=== PATIENT | female | born 1995 | race Caucasian/White ===

== ENCOUNTER 2018-03-07 06:00 | Inpatient (IN) ==
[2018-03-07] MEDS ORDERED: Metoclopramide 10 MG/2 ML VIAL IVP PRN (06:43)
[2018-03-07] MEDS ORDERED: Naloxone 0.4 MG/ML INJ IVP PRN (06:43)
[2018-03-07] MEDS ORDERED: Famotidine 20 MG/2 ML VIAL IVP PRN (06:43)
[2018-03-07] MEDS ORDERED: *HR* Nalbuphine 10 MG/ML AMPUL IVP PRN (06:43)
[2018-03-07] MEDS ORDERED: Lidocaine -MPF 1% 2 ML VIAL ONE (07:18)
[2018-03-07 07:22] LABS: Basophils % 0.2 %; Eosinophils # 0.1 K/mcL (0.0-0.6); Eosinophils % 1.2 %; Hematocrit 35.5 % (35.3-44.9); Hemoglobin 11.8 g/dL (11.5-15.4); Immature Granulocytes % 0.3 % (0-4); Immature Platelets 3.8 % (1.1-6.1); Lymphocytes # 2.9 K/mcL (0.6-4.6); Lymphocytes % 23.6 %; Mean Corpuscular HGB Conc 33.2 g/dL (31.6-35.5); Mean Corpuscular Hemoglobin 29.4 pg (28.0-33.3); Mean Corpuscular Volume 88.3 fL (83.0-100.0); Mean Platelet Volume 10.1 fL (9.4-12.4); Monocytes # 0.9 K/mcL (0.0-1.3); Monocytes % 7.7 %; Neutrophils # 8.1 K/mcL (1.6-8.9); Platelet Count 204 K/mcL (140-400); Red Blood Count 4.02 M/mcL (3.82-4.97); Red Cell Distribution Width 13.4 % (11.5-14.5)
[2018-03-07 07:29] LABS: Amphetamine Screen,Urine Negative ng/mL (Cutoff=1000); Barbiturate Screen,Urine Negative ng/mL (Cutoff=200)
[2018-03-07 07:30] LABS: Benzodiazepines Screen,Urine Negative ng/mL (Cutoff=300); Cannabinoid Screen,Urine Negative ng/mL (Cutoff = 50); Cocaine Screen,Urine Negative ng/mL (Cutoff= 300); Opiate Screen,Urine Negative ng/mL (Cutoff=300); Phencyclidine Screen,Urine Negative ng/mL (Cutoff=25)
--- NOTE | 2018-03-07 07:40 | Anesthesia Evaluation PreOp ---
Date of Encounter: 03/07/18 Time of Encounter: 07:31 - Past History Planned Operation: vaginal del, G1 induction Cardiac History: Denies any Significant Hx Pulmonary History: Denies Any Significant HX REGIONAL COORDINATOR History: Denies Any Significant HX Other Medical History: Denies Any Significant HX Anesthesia History: No Prior Anesthetic Complications, Past Anesthesia (no family hx.) Alcohol Use: none Drug use: marijuana Medications and Allergies Acetaminophen [Tylenol] 1,300 mg PO 03/07/18 [History] Allergy/AdvReac Type Severity Reaction Status Date / Time Penicillins Allergy See Verified 03/07/18 06:46 Comments Anesthesia Results - Labs 03/07/18 06:50 Anesthesia Exam - HEENT Pupil (Motor): Pupils equal Mallampati: II Teeth: Normal Oral Opening: Greater than 3 - REGIONAL COORDINATOR LOC: Oriented REGIONAL COORDINATOR Motor: Normal RUE, Normal LUE, Normal RLE, Normal LLE, Normal Face REGIONAL COORDINATOR Sensory: Normal: RUE, LUE, RLE, LLE, Face - Cardiac Rhythm: Regular Murmur: None - Pulmonary Breath Sounds: bilateral Clear Respiratory Effort: Symmetrical Anesthesia Assess/Plan ASA Score: 2 Level of consciousness: Cooperative, Oriented Anesthetic Plan: General, Spinal, Epidural Monitoring Plan: Standard Monitors Recovery Plan: PACU
[2018-03-07] MEDS ORDERED: Epidural Premix (fent/bupiv) 110 ML EP SCH (07:45)
[2018-03-07] MEDS: Ringers Solution, Lactated 1,000 ML IVC SCH ×2 (07:52→18:32)
[2018-03-07] MEDS ORDERED: miSOPROStol 25 MCG TABLET PO SCH (08:00)
[2018-03-07] MEDS ORDERED: Lidocaine -MPF 2% 5 ML VIAL ONE (08:01)
--- NOTE | 2018-03-07 10:40 | OB/GYN History & Physical ---
Date of Encounter: 03/07/18 Time of Encounter: 10:32 Assessment and Plan (1) 40 weeks gestation of Current visit: Yes Status: Acute (2) Intrauterine Current visit: Yes Status: Acute Admit to L&D for IOL Cytotec 50mcg po x 1 Labs - CBC and clot to hold CEFM Pain mangement plan is epidural Anticipate Dr. Medina is OB bus info consultant and is available as needed (3) Intact amniotic membranes Current visit: Yes Status: Acute Qualifiers: Trimester: third trimester Qualified Code(s): Z34.93 - Encounter for supervision of normal , unspecified, third trimester (4) GBS (group B Streptococcus carrier), +RV culture, currently Current visit: Yes Status: Acute PCN allergic - IV Vancomycin q 12h until delivery (5) Type A blood, Rh negative Current visit: Yes Status: Acute Cord blood to be collected at delivery (6) NST (non-stress test) reactive Current visit: Yes Status: Acute Category I tracing History of Present Illness Chief complaint: Scheduled IOL HPI: Ms. Sigala is a 22 year old female at 40 weeks 2 days gestation dated by initial exam. She presents for scheduled IOL secondary to suspected circumvallate placenta. She endorses good fm and denies lof, vb, ctx. Her has been complicated by a circumvallate placenta. She was seen by the midwives throughout her in consultation with OB. records are available electronically and have been reviewed. Labs: A- GBS+ Hep B- HIV- T. Palladium- GC/CL- Rubella immune Varicella immune Past Med Surg Social Fam HX - Past Medical History Medical history: no medical history Psychiatric history: no psych history - Past Surgical History Surgical History: no surgical history - Social History Smoking Status: Never smoker Smokeless Tobacco Status: No Alcohol use: none Drug use: marijuana - Family History Father Family Member Ethnicity: Non- Living Status: Still Living Hx Family Cardiac Disorders: No Hx Family Respiratory Disorders: No Hx Family Cancer: No Hx Family GI Disorders: No Hx Family Genitourinary Disorders: No Hx Family Endocrine Disorder: No Hx Family Musculoskeletal Disorders: No Hx Family Neuromuscular Disorders: No Hx Family Neurologic Disorders: No Hx Family HEENT Disorders: No Hx Family Autoimmune Disorders: No Hx Family Reproductive Disorders: No Hx Family Psychosocial Disorders: No Hx Family Medical Disorders: No Obstetrical History - Pregnancies : 1 Para: 0 Term: 0 : 0 Ab's: 0 Livin Medications and Allergies Acetaminophen [Tylenol] 1,300 mg PO 03/07/18 [History] Allergy/AdvReac Type Severity Reaction Status Date / Time Penicillins Allergy See Verified 03/07/18 06:46 Comments Review of System OB All systems PM: reviewed and no additional remarkable complaints except as stated Exam - Constitutional Constitutional: well developed, well nourished, no acute distress, obese - HEENT HEENT: PERRL, Normocephaly, Mucus Membranes Moist - Neck Neck exam: full ROM - Lungs Respiratory exam: CTAB - Breasts Breast: bilateral: normal - Abdomen Abdomen: Present: bowel sounds normal, gravid, non tender - Extremities Extremities exam: normal capillary refill, normal inspection, pedal edema, radial pulses palpable and symmetrical - Vulva Vulva: bilateral: normal - Vagina Vagina: Present: normal moisture - Cervix Dilation: 3 (per RN) Effacement: 80 Station: -1 - Uterus Uterus exam: Present: normal size, normal contour - Adnexa Adnexa: bilateral: normal - Anus/Rectum Anus/Rectum: Present: normal perianal skin Results Result Diagrams: 03/07/18 06:50 Abnormal lab results WBC 12.1 K/mcL (4.3-11.1) H 03/07/18 06:50 All other labs normal. - VTE Reasons for not Prescribing Prophylaxis: Treatment not Indicated - Low risk for VTE
[2018-03-07] MEDS ORDERED: Ondansetron 4 MG/2 ML VIAL IVP PRN ×2 (12:00→23:31)
[2018-03-07] MEDS ORDERED: Ondansetron 4 MG/2 ML VIAL ONE (12:01)
[2018-03-07] MEDS ORDERED: Aminoglycoside Consult 1 EACH MC ONE (12:14)
[2018-03-07] MEDS ORDERED: Oxytocin 20 units/ LR 1000 mL 20 UNIT/1,000 ML BAG IVC SCH ×2 (12:30→22:10)
--- NOTE | 2018-03-07 15:11 | OB Labor Progress Note ---
Date of Encounter: 03/07/18 Time of Encounter: 15:09 Labor Progress Note - Subjective Subjective: Patient comfortable with contractions. States she is feeling contractions about every 5 minutes. - Cervix Cervix: 3-4/90/-1 - Heart Tones Heart Tones: Baseline 120 Moderate variability Accelerations present 15 x 15 No decelerations FHR category I - [place]: Contractions every 2-3 minutes and palpate mild - Interventions Interventions: SVE - Plan Physician notified: No Plan: Continue induction management Consider AROM in 1 hour with IUPC Anticipate vaginal delivery
--- NOTE | 2018-03-07 17:15 | Anesthesia Procedures ---
Addendum entered and electronically signed by Jaydon Arreaga CRNA 03/07/18 23:21: Infant Delivery Date: 03/07/18 Infant Delivery Time: 19:14 Original Note: Date of Encounter: 03/07/18 Time of Encounter: 16:39 Procedures: Anesthesia - Epidural/Spinal Patient ID/Chart reviewed: Yes Patient examined: Yes OB Eval: Gestational age: term OB Eval: : 1 OB Eval: Contractions: Non-stressed pattern Consent Obtained: Yes Supplemental Oxygen: None/Room Air Site Prep: Aseptic Technique, Sterile prep and drape, 0.5% Chlorhexidine/Alcohol Patient position: upright Local Anesthetic: Lidocaine 1% Amount of Local Anesthetic used: 2 Touhy Needle Gauge: 18 Touhy Needle Depth (cm): 7 Catheter Depth at Skin (cm): 11 Test Dose (1.5% Lido + Epi): Volume given (mls): 3 Test Dose Result: Negative Loading Dose: Other: 10ml from solution Loading Dose Administered: Thru Catheter Infusion Med: 0.125% Bupivacaine w/ 2 mcg/ml Fentanyl Infusion Rate (mls/hr): [address]: Tegaderm, Tape Interspace Used: L3-L4 Loss of Resistance (BRITTANY): Yes (saline) Blood: No CSF: No Paresthesia: No Procedure: vss though out procedure, FHR stable per rn's
[2018-03-07] MEDS ORDERED: *HR* Ropivacaine/PF 0.2% 20 ML VIAL ONE (17:23)
--- NOTE | 2018-03-07 18:43 | OB Labor Progress Note ---
Date of Encounter: 03/07/18 Time of Encounter: 18:38 Labor Progress Note - Subjective Subjective: Patient comfortable with epidural. - Cervix Cervix: 7-8/100/0 - Heart Tones Heart Tones: Baseline 110 Moderate variability Accelerations present 15x15 Variable and late decelerations FHR Category II - [place] Sells: Contractions every 2 minutes and palpate strong - Interventions Interventions: SVE AROM-Moderate amount of clear fluid IUPC placed - Plan Physician notified: Yes Physician notified details: Notified of pitocin stopped Plan: Continue IOL management Stop pit s/t decelerations - restart when appropriate Peanut ball and deep left lateral in rotation Anticipate Dr. Medina aware of POC and agrees
--- NOTE | 2018-03-07 19:51 | OB/GYN Procedure Note ---
Delivery - Delivery Date: 03/07/18 Provider: Henrietta Spence Intrapartum events: none Delivery induction: misoprostol Delivery augmentation: rupture of membranes, pitocin Delivery monitor: external FHT, external uterine, internal uterine Anesthesia: epidural Quantitated Blood Loss: 450 - (s) Infant A Infant Delivery Date: 03/07/18 Delivery Time: 19:14 Presentation: vertex Position: OA Route of delivery: Gender: Male Viability: Viable Pounds: 7 Ounces: 10 Weight Gram: 3.465 kg at 1 minute: 8 at 5 mins: 8 Shoulder Dystocia: not encountered Specimens collected: cord blood Placenta: spontaneous Cord: 3 umbilical vessels - Repair Episiotomy: none Laceration Description: Perineal - 2nd Degree (repaired), Labial (right - repaired) - Complications Delivery complications: none Delivery comments: This is a 22 year old G 1 now P 1 who was admitted for induction of labor secondary to circumvallate placenta. She progressed with misoprostol induction and Pitocin augmentation with AROM to the second stage of labor. She pushed for about 30 minutes. She delivered a viable, male , "Chuck" OA over a first-degree laceration. A nuchal cord was not identified. A shoulder dystocia was not encountered. The was placed on the maternal abdomen and allowed to transition spontaneously. The cord was double clamped by fire control technician g after pulsations ceased and cut by FOB. scores were 8 at 1 minute and 8 at 5 minutes. The weighed 7 lbs. 10 oz. (3465 g). The placented delivered spontaneously, intact ([place]) with a 3-vessel cord. Inspection revealed a first-degree laceration with a right labial laceration. The uterus was firm with no active bleeding. EBL was 450 mL. Placenta and umbilical artery blood gases were not sent. There were no complications during the procedure. Mom and baby are skin to skin following delivery. - Disposition Mom disposition: stable in LDR [place] disposition: stable in LDR
[2018-03-07] MEDS ORDERED: Methylergonovine 0.2 MG/ML AMPUL IM ONE (20:04)
[2018-03-07] MEDS ORDERED: Benzocaine/Menthol 56 GM AEROSOL SPRAY TP PRN (22:10)
[2018-03-07] MEDS ORDERED: Ibuprofen 600 MG TABLET PO PRN (22:10)
[2018-03-07] MEDS ORDERED: Rho Immune Globulin 1,500 UNIT SYRINGE IM PRN (22:10)
[2018-03-07] MEDS: Acetaminophen 325 MG TABLET PO PRN (22:43)
[2018-03-08] MEDS: Acetaminophen 325 MG TABLET PO PRN ×3 (04:56→18:42)
[2018-03-08] MEDS: Prenatal Vit/FA 1 EACH TABLET PO SCH (07:39)
[2018-03-08 07:55] LABS: Basophils % 0.1 %; Eosinophils % 0.3 %; Hematocrit 30.9 % (35.3-44.9); Hemoglobin 10.3 g/dL (11.5-15.4); Immature Granulocytes % 0.4 % (0-4); Lymphocytes # 2.6 K/mcL (0.6-4.6); Mean Corpuscular HGB Conc 33.3 g/dL (31.6-35.5); Mean Corpuscular Hemoglobin 29.6 pg (28.0-33.3); Mean Corpuscular Volume 88.8 fL (83.0-100.0); Mean Platelet Volume 10.1 fL (9.4-12.4); Monocytes # 1.3 K/mcL (0.0-1.3); Monocytes % 9.1 %; Neutrophils # 10.2 K/mcL (1.6-8.9); Platelet Count 159 K/mcL (140-400); Red Blood Count 3.48 M/mcL (3.82-4.97); Red Cell Distribution Width 13.4 % (11.5-14.5); Segmented Neutrophils % 72.1 %
--- NOTE | 2018-03-08 11:29 | OB/GYN Progress Note ---
Date of Encounter: 03/08/18 Time of Encounter: 11:26 - Assessment and Plan (1) Status post vaginal delivery Current Visit: Yes Status: Acute Pt meeting PP day 1 milestones. Reports pain well controlled. Encouraged ambulation. Anticipate discharge home tomorrow. (2) () Current Visit: Yes Status: Acute Infant latching well. at BS to assist. Continue support. Will need pump. Subjective - Subjective Principal diagnosis: Pt resting in room, denies complaints. Interval history: 22y/o on PPD 1 following a at 40+2 weeks. Pt resting comfortably in her room. Denies complaints. FOB present in room. Patient reports: appetite normal, voiding normally, pain well controlled, ambulating normally : doing well, nursing well Objective - Latest Vital Signs Latest vital signs: Vital Signs Temp Pulse Resp BP Pulse Ox 03/08/18 07:28 97.4 F L 58 16 94/55 97 03/08/18 04:10 97.4 F L 79 16 118/78 99 03/08/18 00:05 97.8 F 73 14 103/66 99 03/07/18 23:15 98.3 F 65 14 99/66 99 03/07/18 22:15 98.2 F 62 16 109/67 98 Intake and Output 03/07/18 03/08/18 03/08/18 23:59 07:59 15:59 Intake Total 800 / 800 Output Total 500 / 500 200 / 200 Balance -500 / -500 600 / 600 Intake: Oral 800 / 800 Output: Urine 500 / 500 200 / 200 - Exam Lungs: bilateral: normal Chest: Normal S1, Normal S2 Extremities: Present: normal. Absent: tenderness, edema Abdomen: Present: normal appearance, soft Uterus: Present: firm Uterus Position: At Umbilicus - Labs Labs: Laboratory Results - last 24 hr 03/07/18 03/08/18 20:30 07:33 WBC 14.2 H RBC 3.48 L Hgb 10.3 L D Hct 30.9 L MCV 88.8 MCH 29.6 MCHC 33.3 RDW 13.4 Plt Count 159 MPV 10.1 Immature Gran % 0.4 Seg Neutrophils % 72.1 Lymphocytes % 18.0 Monocytes % 9.1 Eosinophils % 0.3 Basophils % 0.1 Neutrophils # 10.2 H Lymphocytes # 2.6 Monocytes # 1.3 Eosinophils # 0.0 Basophils # 0.0 Screen NEGATIVE Baby's Blood Type O RH POSITIVE Mother's Blood Type A RH NEGATIVE Rhogam Indicated YES Rhogam Req for Mother 1
[2018-03-08] MEDS ORDERED: Lanolin 7 G OINT...G. TP PRN (20:39)
[2018-03-09 08:13] VITALS: BP 103/67
--- NOTE | 2018-03-09 08:17 | Discharge Summary ---
Date of Encounter: 03/09/18 Time of Encounter: 08:14 - Discharge Diagnosis (1) Vaginal delivery Priority: Primary Status: Acute Comments: Continue routine care discharge home today follow up with CNM in 4-6 weeks (2) Breast feeding status of mother Priority: Secondary Status: Acute Comments: support prn breast pump RX - Discharge Medications Prescriptions: Breast Pump [BREAST PUMP] 1 each .ROUTE AD #1 each Home Medications: Breast Pump [BREAST PUMP] 1 each .ROUTE AD #1 each 03/09/18 [Rx] Lanolin [Lansinoh] 1 appl TP TID PRN oint...g. 03/09/18 [Rx] Vit/FA 1 each PO DAILY tablet 03/09/18 [Rx] Allergies/Adverse Reactions: Allergy/AdvReac Type Severity Reaction Status Date / Time Penicillins Allergy See Verified 03/07/18 06:46 Comments Data Procedures and tests throughout hospitalization: Laboratory Tests 03/07/18 03/07/18 03/07/18 06:50 06:50 20:30 WBC 12.1 H RBC 4.02 Hgb 11.8 Hct 35.5 MCV 88.3 MCH 29.4 MCHC 33.2 RDW 13.4 Plt Count 204 MPV 10.1 Immature Gran % 0.3 Seg Neutrophils % 67.0 Lymphocytes % 23.6 Monocytes % 7.7 Eosinophils % 1.2 Basophils % 0.2 Neutrophils # 8.1 Lymphocytes # 2.9 Monocytes # 0.9 Eosinophils # 0.1 Basophils # 0.0 Immature Plt Fraction 3.8 Urine Opiates Screen Negative Ur Barbiturates Screen Negative Ur Phencyclidine Scrn Negative Ur Amphetamines Screen Negative U Benzodiazepines Scrn Negative Urine Cocaine Screen Negative U Marijuana (THC) Screen Negative Ur Drug Screen Interp See Below Screen NEGATIVE Baby's Blood Type O RH POSITIVE Mother's Blood Type A RH NEGATIVE Rhogam Indicated YES Rhogam Req for Mother 1 03/08/18 07:33 WBC 14.2 H RBC 3.48 L Hgb 10.3 L D Hct 30.9 L MCV 88.8 MCH 29.6 MCHC 33.3 RDW 13.4 Plt Count 159 MPV 10.1 Immature Gran % 0.4 Seg Neutrophils % 72.1 Lymphocytes % 18.0 Monocytes % 9.1 Eosinophils % 0.3 Basophils % 0.1 Neutrophils # 10.2 H Lymphocytes # 2.6 Monocytes # 1.3 Eosinophils # 0.0 Basophils # 0.0 Immature Plt Fraction Urine Opiates Screen Ur Barbiturates Screen Ur Phencyclidine Scrn Ur Amphetamines Screen U Benzodiazepines Scrn Urine Cocaine Screen U Marijuana (THC) Screen Ur Drug Screen Interp Screen Baby's Blood Type Mother's Blood Type Rhogam Indicated Rhogam Req for Mother Labs on day of discharge: Labs from last 24 hours 03/07/18 20:30 Screen NEGATIVE Rhogam Req for Mother 1 Date of admission: 03/07/18 06:42 Primary care physician: PCP NONE Consults: 03/07/18 22:10 Consult to Photograph Mounter [CONS] Routine Comment: Vaginal delivery, consult needed Discharging clinician: Angella Erazo Anticipated date of discharge: 03/09/18 - Patient Status Disposition: Home, Self-Care Condition: Good Functional capacity at discharge: independent ambulation - Discharge Instructions Follow Up With: NONE,PCP [Primary Care Provider] - Wendy Valentin CNM [Non-Partnered Physician] - - Diet and Activity Activity: increase activity as tolerated Diet: regular diet Hospital Course Reason for admission: active labor Delivery: Episiotomy: none Laceration: other (right labial) Other procedures: none complications: none Discharge diagnosis: IUP at term delivered [place] baby: male Time Attestation: Total time spent providing and/or coordinating discharge services: Time Spent: Less than 30 minutes Exam - Constitutional Vitals: Temp Pulse Resp BP Pulse Ox 98.6 F 73 14 103/67 100 03/09/18 08:11 03/09/18 08:11 03/09/18 08:11 03/09/18 08:11 03/09/18 08:11 General appearance IM: A&O X 3, pleasant, answers questions appropriately - Respiratory Respiratory exam: Present: CTAB - Cardiovascular Cardiovascular exam IM: Present: RRR, +S1, +S2 - GI/Abdominal GI/Abdominal exam IM: normal bowel sounds - Uterine Tone: Firm Uterus Position: 1 Finger Below Umbilicus, Midline - Extremities Exam Extremities exam IM: Present: full ROM, normal capillary refill, normal inspection - Neurological Exam Neurological exam: alert, oriented X3, reflexes normal
[2018-03-09] MEDS: Prenatal Vit/FA 1 EACH TABLET PO SCH (08:35)
== END 2018-03-09 12:15 | disposition home or self-care (01) | DRG 807 ==
LOC: 1NENULAB 06:42 → 1NENUOBS 22:18
PROVIDERS: ADMIT Advanced Practice Midwife; ATTEND Advanced Practice Midwife